=== PATIENT | male | born 1950 | race Caucasian/White ===

== ENCOUNTER 2024-07-22 09:36 | Inpatient (IN) | payer MEDICARE, OTHER ==
[~2024-07-22] VITALS: Ht 170.2 cm; Wt 50.0 kg
[2024-07-22] MEDS: IV NS 0.9% 500 ML BAG IV ONE (09:55)
[2024-07-22 09:58] LABS: BASOPHILS % (AUTO) 0.3 % (0.0-2.0); EOSINOPHILS % (AUTO) 0.1 % (0.0-6.0); HEMATOCRIT 45 % (39-51); HEMOGLOBIN 15.3 g/dL (13.5-17.5); LYMPHOCYTES # (AUTO) 0.9 K/uL (0.8-4.8); LYMPHOCYTES % (AUTO) 11.2 % (20.0-44.0); MEAN CORPUSCULAR HEMOGLOBIN 30 PG (26.0-33.0); MEAN CORPUSCULAR HGB CONC 34 g/dl (31.0-36.0); MEAN CORPUSCULAR VOLUME 88 fL (80-96); MONOCYTES # (AUTO) 1.4 K/uL (0.1-1.30); MONOCYTES % (AUTO) 16.9 % (2.0-12.0); NEUTROPHILS # (AUTO) 5.9 K/uL (1.8-8.9); NEUTROPHILS % (AUTO) 71.5 % (43.0-81.0); PLATELET COUNT (AUTO) 232 K/uL (150-450); RED BLOOD CELL COUNT(AUTO) 5.13 MIL/uL (4.5-6.0); WHITE BLOOD COUNT (AUTO) 8.3 K/uL (4.3-11.0)
[2024-07-22 10:07] LABS: CALCIUM, SERUM 8.6 mg/dL (8.5-10.1); CREATININE 0.9 mg/dL (0.6-1.3); POTASSIUM 4.1 mmol/L (3.5-5.1)
[2024-07-22 10:10] LABS: INR 1.3 (0.91-1.10); PARTIAL THROMBOPLASTIN TIME 37.7 SEC (24.3-34.3); PROTHROMBIN TIME 13.5 SECS (9.2-11.1)
[2024-07-22 10:13] LABS: ALBUMIN 2.6 g/dL (3.4-5.0); BILIRUBIN,DIRECT 0.2 mg/dL (0.0-0.2); BILIRUBIN,TOTAL 0.4 mg/dL (0.2-1.0); TOTAL PROTEIN, SERUM 7.3 g/dL (6.4-8.2)
[2024-07-22 10:18] LABS: LACTIC ACID 1.2 mmol/L (0.4-2.0)
[2024-07-22 10:44] LABS: APPEARANCE,URINE CLEAR (CLEAR); BILIRUBIN,URINE 1+ (NEGATIVE); BLOOD, URINE TRACE-INTA Ery/uL (NEGATIVE); COLOR,URINE DARK YELLOW (YELLOW); KETONES,URINE 1+ mg/dL (NEGATIVE); LEUKOCYTE ESTERASE ,URINE NEGATIVE (NEGATIVE); NITRITE, URINE NEGATIVE (NEGATIVE); PROTEIN,URINE TRACE mg/dl (NEGATIVE); UGLUCOSE NEGATIVE (NEGATIVE)
[2024-07-22 10:51] LABS: ADD URINE CULTURE NO; BACTERIA,URINE Few /HPF (None Seen); MUCUS,URINE Few /LPF (None Seen); SQUAMOUS EPITHELIAL CELL,UR 0-2 /HPF (None Seen)
[2024-07-22] MEDS ORDERED: ACET325T53 PO ×2 (11:17)
[2024-07-22] MEDS ORDERED: RIVA10TA PO (11:17)
[2024-07-22] MEDS ORDERED: VALB40CA2 PO (11:17)
[2024-07-22] MEDS ORDERED: AMIN30LI27 PO (11:17)
[2024-07-22] MEDS ORDERED: MULT-213 PO (11:17)
[2024-07-22] MEDS ORDERED: FLUO10TA PO (11:17)
[2024-07-22] MEDS ORDERED: NA P133E RC (11:17)
[2024-07-22] MEDS ORDERED: BISA10SU11 RC (11:17)
[2024-07-22] MEDS ORDERED: MAGN400O6 PO (11:17)
[2024-07-22] MEDS ORDERED: OLAN10TA3 PO (11:17)
[2024-07-22] MEDS ORDERED: DIVA250T4 PO (11:17)
[2024-07-22] MEDS ORDERED: PSYL660P17 PO (11:17)
[2024-07-22] MEDS ORDERED: MAGNESIUM HYDROXIDE 30 ML UDC PO PRN (12:00)
[2024-07-22] MEDS ORDERED: ACETAMINOPHEN 325 MG TABLET PO PRN (12:00)
[2024-07-22] MEDS: ENOXAPARIN SODIUM 40 MG/0.4 ML DISP.SYRIN SQ SCH (12:00)
[2024-07-22] MEDS ORDERED: MAG HYDROX/AL HYDROX/SIMETH 30 ML UDC PO PRN (12:00)
[2024-07-22] MEDS ORDERED: NA PHOS,M-B/NA PHOS,DI-BA 1 EA ENEMA RC PRN (12:00)
[2024-07-22] MEDS ORDERED: ONDANSETRON HCL/PF 4 MG/2 ML VIAL IVP PRN (12:00)
[2024-07-22] MEDS ORDERED: BISACODYL SUPP (10 MG) 10 MG/SUPP.RECT SUPP.RECT RC PRN (12:00)
[2024-07-22 12:40] VITALS: BP 124/70; TEMP 97.7; O2SAT 97
[2024-07-22] MEDS: DIVALPROEX SODIUM 250 MG TABLET.DR PO SCH (13:00)
[2024-07-22] MEDS: CEFTRIAXONE 1 G in IV D5W 50 ML IV SCH (13:19)
[2024-07-22] MEDS: AZITHROMYCIN 500 MG in IV D5W 250 ML IV SCH (14:10)
[2024-07-22] MEDS: PROSOURCE / PROSTAT (PYXIS) 30 ML UDC PO SCH (17:00)
[2024-07-22] MEDS: IV D5/0.45 NACL 1,000 ML IV SCH (18:46)
[2024-07-22 20:00] VITALS: BP_SYST 129; BP_DIAS 102; BP_DIAS 72; TEMP 97.9; O2SAT 95
[2024-07-22] MEDS: OLANZAPINE 10 MG TABLET PO SCH (21:00)
[2024-07-22] MEDS: PSYLLIUM SEED 1 PKT PACKET PO SCH (21:00)
[2024-07-23 06:49] LABS: BASOPHILS % (AUTO) 0.2 % (0.0-2.0); EOSINOPHILS % (AUTO) 0.1 % (0.0-6.0); HEMATOCRIT 43 % (39-51); HEMOGLOBIN 14.4 g/dL (13.5-17.5); LYMPHOCYTES # (AUTO) 0.6 K/uL (0.8-4.8); LYMPHOCYTES % (AUTO) 6.8 % (20.0-44.0); MEAN CORPUSCULAR HEMOGLOBIN 30 PG (26.0-33.0); MEAN CORPUSCULAR HGB CONC 34 g/dl (31.0-36.0); MEAN CORPUSCULAR VOLUME 88 fL (80-96); MONOCYTES # (AUTO) 1.5 K/uL (0.1-1.30); MONOCYTES % (AUTO) 17.1 % (2.0-12.0); NEUTROPHILS # (AUTO) 6.9 K/uL (1.8-8.9); NEUTROPHILS % (AUTO) 75.8 % (43.0-81.0); PLATELET COUNT (AUTO) 215 K/uL (150-450); RED BLOOD CELL COUNT(AUTO) 4.83 MIL/uL (4.5-6.0); RED CELL DISTRIBUTION WIDTH 15.2 % (11.5-15.0); WHITE BLOOD COUNT (AUTO) 9.1 K/uL (4.3-11.0)
[2024-07-23 08:00] VITALS: BP 128/69; TEMP 97.5; O2SAT 94
[2024-07-23] MEDS: MULTIVIT W/MINERALS 1 TAB TABLET PO SCH (08:25)
[2024-07-23] MEDS: Fluoxetine 10 mg capsule PO SCH (08:25)
[2024-07-23] MEDS: PANTOPRAZOLE 40 MG VIAL IV SCH (08:28)
[2024-07-23 08:32] LABS: CALCIUM, SERUM 8.6 mg/dL (8.5-10.1); CREATININE 0.6 mg/dL (0.6-1.3); MAGNESIUM 1.9 mg/dL (1.8-2.4); PHOSPHORUS 3.1 mg/dL (2.5-4.9); POTASSIUM 3.9 mmol/L (3.5-5.1)
[2024-07-23] MEDS ORDERED: Medication Not On Formulary EA (Valbenazine Tosylate (Ingrezza) 40 MG) PO SCH (09:00)
[2024-07-23 11:19] LABS: LYMPHOCYTES % (MANUAL) 13 % (16-48); MONOCYTES % (MANUAL) 7 % (0-11.0); NEUTROPHILS % (MANUAL) 80 (42-76); PLATELET ESTIMATE ADEQUATE
[2024-07-23 16:00] VITALS: BP 142/91; TEMP 97.7; O2SAT 94
[2024-07-23 22:56] VITALS: BP 147/64; TEMP 97.8; O2SAT 96
[2024-07-24 07:00] VITALS: BP 122/65; TEMP 97.5; O2SAT 94
[2024-07-24 07:42] LABS: BASOPHILS % (AUTO) 0.2 % (0.0-2.0); EOSINOPHILS % (AUTO) 0.2 % (0.0-6.0); HEMATOCRIT 42 % (39-51); HEMOGLOBIN 14.4 g/dL (13.5-17.5); LYMPHOCYTES # (AUTO) 1.1 K/uL (0.8-4.8); LYMPHOCYTES % (AUTO) 8.7 % (20.0-44.0); MEAN CORPUSCULAR HEMOGLOBIN 30 PG (26.0-33.0); MEAN CORPUSCULAR HGB CONC 34 g/dl (31.0-36.0); MEAN CORPUSCULAR VOLUME 88 fL (80-96); MONOCYTES # (AUTO) 1.5 K/uL (0.1-1.30); MONOCYTES % (AUTO) 11.1 % (2.0-12.0); NEUTROPHILS # (AUTO) 10.6 K/uL (1.8-8.9); NEUTROPHILS % (AUTO) 79.8 % (43.0-81.0); PLATELET COUNT (AUTO) 228 K/uL (150-450); RED BLOOD CELL COUNT(AUTO) 4.76 MIL/uL (4.5-6.0); RED CELL DISTRIBUTION WIDTH 15.4 % (11.5-15.0); WHITE BLOOD COUNT (AUTO) 13.3 K/uL (4.3-11.0)
[2024-07-24 08:14] LABS: CALCIUM, SERUM 8.6 mg/dL (8.5-10.1); CREATININE 0.5 mg/dL (0.6-1.3); MAGNESIUM 1.9 mg/dL (1.8-2.4); PHOSPHORUS 2.6 mg/dL (2.5-4.9); POTASSIUM 3.3 mmol/L (3.5-5.1)
[2024-07-24] MEDS ORDERED: Z GUARD REMEDY 4 OZ OINT TP PRN (08:30)
[2024-07-24] MEDS: Z GUARD REMEDY 4 OZ OINT TP SCH (10:22)
[2024-07-24 16:00] VITALS: BP 117/66; TEMP 97.7; O2SAT 98
[2024-07-24 20:00] VITALS: BP 120/74; TEMP 97.3; O2SAT 97
[2024-07-25 07:00] VITALS: BP 125/76; TEMP 97.5; O2SAT 98
[2024-07-25] MEDS: PANTOPRAZOLE 40 MG TABLET.DR PO SCH (08:44)
[2024-07-25] MEDS: DAKINS QUARTER STRENGTH (0.125%) 480 ML BOTTLE TOP SCH (09:46)
[2024-07-25 14:32] LABS: BASOPHILS % (AUTO) 0.3 % (0.0-2.0); EOSINOPHILS # (AUTO) 0.1 K/uL (0.0-0.7); EOSINOPHILS % (AUTO) 0.8 % (0.0-6.0); HEMATOCRIT 43 % (39-51); HEMOGLOBIN 14.3 g/dL (13.5-17.5); LYMPHOCYTES # (AUTO) 1.8 K/uL (0.8-4.8); LYMPHOCYTES % (AUTO) 18.3 % (20.0-44.0); MEAN CORPUSCULAR HEMOGLOBIN 29 PG (26.0-33.0); MEAN CORPUSCULAR HGB CONC 33 g/dl (31.0-36.0); MEAN CORPUSCULAR VOLUME 87 fL (80-96); MONOCYTES # (AUTO) 1.1 K/uL (0.1-1.30); MONOCYTES % (AUTO) 11.1 % (2.0-12.0); NEUTROPHILS # (AUTO) 6.8 K/uL (1.8-8.9); NEUTROPHILS % (AUTO) 69.5 % (43.0-81.0); PLATELET COUNT (AUTO) 237 K/uL (150-450); RED BLOOD CELL COUNT(AUTO) 4.88 MIL/uL (4.5-6.0); RED CELL DISTRIBUTION WIDTH 15.4 % (11.5-15.0); WHITE BLOOD COUNT (AUTO) 9.8 K/uL (4.3-11.0)
[2024-07-25 14:43] LABS: CREATININE 0.7 mg/dL (0.6-1.3); POTASSIUM 3.3 mmol/L (3.5-5.1)
[2024-07-25 16:00] VITALS: BP 116/75; TEMP 97.9; O2SAT 97
[2024-07-25] MEDS: POTASSIUM CHLORIDE 20 MEQ POWDER PACKET NG SCH (16:52)
[2024-07-25 20:00] VITALS: BP_SYST 95; BP_SYST 96; BP_DIAS 45; BP_DIAS 53; TEMP 98.1; O2SAT 96; O2SAT 97
[2024-07-26 06:52] LABS: BASOPHILS % (AUTO) 0.3 % (0.0-2.0); EOSINOPHILS # (AUTO) 0.1 K/uL (0.0-0.7); EOSINOPHILS % (AUTO) 0.8 % (0.0-6.0); HEMATOCRIT 40 % (39-51); HEMOGLOBIN 13.4 g/dL (13.5-17.5); LYMPHOCYTES # (AUTO) 1.6 K/uL (0.8-4.8); LYMPHOCYTES % (AUTO) 18.2 % (20.0-44.0); MEAN CORPUSCULAR HEMOGLOBIN 29 PG (26.0-33.0); MEAN CORPUSCULAR HGB CONC 33 g/dl (31.0-36.0); MEAN CORPUSCULAR VOLUME 88 fL (80-96); MONOCYTES # (AUTO) 1.1 K/uL (0.1-1.30); MONOCYTES % (AUTO) 12.1 % (2.0-12.0); NEUTROPHILS % (AUTO) 68.6 % (43.0-81.0); PLATELET COUNT (AUTO) 231 K/uL (150-450); RED CELL DISTRIBUTION WIDTH 15.2 % (11.5-15.0); WHITE BLOOD COUNT (AUTO) 8.8 K/uL (4.3-11.0)
[2024-07-26 07:09] LABS: CALCIUM, SERUM 8.5 mg/dL (8.5-10.1); CREATININE 0.6 mg/dL (0.6-1.3); MAGNESIUM 1.9 mg/dL (1.8-2.4); POTASSIUM 3.1 mmol/L (3.5-5.1)
[2024-07-26 07:57] VITALS: BP 107/49; TEMP 97.5; O2SAT 95
[2024-07-26 08:00] VITALS: BP 107/44; TEMP 97.5; O2SAT 95
[2024-07-26] MEDS: POTASSIUM CHLORIDE 20 MEQ POWDER PACKET NG SCH (11:03)
[2024-07-26] MEDS ORDERED: AMOX-427 PO (13:16)
[2024-07-26 14:50] VITALS: BP 109/58
== END 2024-07-26 16:51 | DRG 177 ==
LOC: ER 09:51 → MED 12:00
PROVIDERS: ATTEND Nurse Practitioner Acute Care
DX: J15.69 Pneumonia due to other Gram-negative bacteria (principal); G93.41 Metabolic encephalopathy; N17.0 Acute kidney failure with tubular necrosis; N39.0 Urinary tract infection, site not specified; E44.0 Moderate protein-calorie malnutrition; R64 Cachexia; Z68.1 Body mass index [BMI] 19.9 or less, adult; F01.53 Vascular dementia, unspecified severity, with mood disturbance; F17.210 Nicotine dependence, cigarettes, uncomplicated; E88.09 Other disorders of plasma-protein metabolism, not elsewhere classified; G20.A1 Parkinson's disease without dyskinesia, without mention of fluctuations; I48.0 Paroxysmal atrial fibrillation; I73.9 Peripheral vascular disease, unspecified; R53.1 Weakness; F32.9 Major depressive disorder, single episode, unspecified; B96.89 Other specified bacterial agents as the cause of diseases classified elsewhere; C44.329 Squamous cell carcinoma of skin of other parts of face; C44.42 Squamous cell carcinoma of skin of scalp and neck; J69.0 Pneumonitis due to inhalation of food and vomit; J15.9 Unspecified bacterial pneumonia
CPT/HCPCS: 36415; 70450-TC; 71045-TC; 74230-TC; 80048-TC; 80076-TC; 81001; 83605-TC; 83735-TC; 84100-TC; 85025-TC; 85730-TC; 87040-TC; 87086-TC; 92526; 92611-TC; 97110-TC; 97112-TC; 97116-TC; 97530-TC; A4223; G0378; J0456; J0696; J1650; J2470; J3490; J7030; J7040; J7050; J7060

== ENCOUNTER 2024-12-25 12:32 | Inpatient (IN) | payer MEDICARE, OTHER ==
[~2024-12-25] VITALS: Ht 167.6 cm; Wt 58.5 kg
[~2024-12-25 12:32] MED LIST: ACET325T53 PO; AMIN30LI27 PO; AMOX-427 PO; BISA10SU11 RC; DIVA250T4 PO; FLUO10TA PO; MAGN400O6 PO; MULT-213 PO; NA P133E RC; OLAN10TA3 PO; PSYL660P17 PO; RIVA10TA PO; VALB40CA2 PO
[2024-12-25] MEDS: IV NS 0.9% 1,000 ML BAG IV ONE (12:50)
[2024-12-25 13:01] LABS: CALCIUM, SERUM 8.7 mg/dL (8.5-10.1); CREATININE 0.9 mg/dL (0.6-1.3); SODIUM SERUM 140.0 mmol/L (136-145); UREA NITROGEN, BLOOD 20.0 mg/dL (7-18)
[2024-12-25] MEDS ORDERED: ACETAMINOPHEN 650 MG/SUPP.RECT RC ONE (13:01)
[2024-12-25] MEDS ORDERED: PIPERACI/TAZO 3.375GM/D5W 50ML PB IV ONE (13:04)
[2024-12-25 13:05] LABS: PLATELET COUNT (AUTO) 203 K/uL (150-450); RED BLOOD CELL COUNT(AUTO) 4.54 MIL/uL (4.5-6.0); RED CELL DISTRIBUTION WIDTH 14.6 % (11.5-15.0); WHITE BLOOD COUNT (AUTO) 18.6 K/uL (4.3-11.0)
[2024-12-25] MEDS: ACETAMINOPHEN 650 MG/SUPP.RECT RC ONE (13:05)
[2024-12-25 13:07] LABS: ASPARTATE AMINOTRANSFERASE 17.0 U/L (15-37); TOTAL PROTEIN, SERUM 7.4 g/dL (6.4-8.2)
[2024-12-25 13:10] LABS: LACTIC ACID 1.4 mmol/L (0.4-2.0)
[2024-12-25] MEDS: PIPERACILLIN /TAZOBACTAM 3.375 G in IV D5W 50 ML IV ONE (13:10)
[2024-12-25 13:14] LABS: INR 1.47 (0.91-1.10)
[2024-12-25] MEDS ORDERED: VANCOMYCIN 1 GM /D5W 250 ML PB IV ONE (13:47)
[2024-12-25] MEDS: VANCOMYCIN 1 GM in IV D5W 250 ML IV ONE (13:50)
[2024-12-25 14:42] LABS: APPEARANCE,URINE TURBID (CLEAR); BLOOD, URINE 3+ Ery/uL (NEGATIVE); LEUKOCYTE ESTERASE ,URINE 3+ (NEGATIVE); NITRITE, URINE POSITIVE (NEGATIVE); UGLUCOSE NEGATIVE (NEGATIVE)
[2024-12-25 14:53] LABS: ADD URINE CULTURE YES; SQUAMOUS EPITHELIAL CELL,UR 0-2 /HPF (None Seen)
[2024-12-25] MEDS ORDERED: AMIN30LI27 PO (14:58)
[2024-12-25] MEDS ORDERED: DIVA-76 PO (14:58)
[2024-12-25] MEDS ORDERED: MAGN400O6 PO (14:58)
[2024-12-25] MEDS ORDERED: CRAN400T3 PO (14:58)
[2024-12-25 15:06] LABS: LYMPHOCYTES % (MANUAL) 5 % (16-48); MONOCYTES % (MANUAL) 15 % (0-11.0); NEUTROPHILS % (MANUAL) 80 (42-76); PLATELET ESTIMATE ADEQUATE
[2024-12-25] MEDS: IV LR 500 ML IV SCH (16:30)
[2024-12-25] MEDS ORDERED: Z GUARD REMEDY 4 OZ OINT TP PRN (16:30)
[2024-12-25] MEDS ORDERED: ONDANSETRON HCL/PF 4 MG/2 ML VIAL IVP PRN (16:30)
[2024-12-25] MEDS: CEFTRIAXONE 1 G in IV D5W 50 ML IV SCH (17:58)
[2024-12-25] MEDS: OLANZAPINE 10 MG TABLET PO SCH (17:59)
[2024-12-25] MEDS: DIVALPROEX SODIUM 250 MG TABLET.DR PO SCH (17:59)
[2024-12-25] MEDS ORDERED: DOSING PER PHARMACY-VANCOMYCIN IV XX PRN (18:00)
[2024-12-25 20:00] VITALS: BP 100/53; TEMP 98.2; O2SAT 98
[2024-12-25] MEDS: VANCOMYCIN 500 MG in IV D5W 100ml IV SCH (21:45)
[2024-12-26] VITALS: BP 96/50; TEMP 99; O2SAT 94
[2024-12-26 04:00] VITALS: BP 114/59; TEMP 99; O2SAT 96
[2024-12-26 07:00] LABS: PLATELET COUNT (AUTO) 188 K/uL (150-450); RED BLOOD CELL COUNT(AUTO) 4.03 MIL/uL (4.5-6.0); RED CELL DISTRIBUTION WIDTH 14.4 % (11.5-15.0); WHITE BLOOD COUNT (AUTO) 12.3 K/uL (4.3-11.0)
[2024-12-26 07:30] LABS: CALCIUM, SERUM 8.3 mg/dL (8.5-10.1); CREATININE 0.8 mg/dL (0.6-1.3); PHOSPHORUS 2.5 mg/dL (2.5-4.9); SODIUM SERUM 140.0 mmol/L (136-145); UREA NITROGEN, BLOOD 14.0 mg/dL (7-18)
[2024-12-26 08:00] VITALS: BP 117/65; TEMP 98.1; O2SAT 96
[2024-12-26] MEDS: PANTOPRAZOLE 40 MG TABLET.DR PO SCH (08:26)
[2024-12-26] MEDS: RIVAROXABAN 10 MG TABLET PO SCH (08:28)
[2024-12-26 08:57] LABS: LDL 60.0 mg/dL (0-99)
[2024-12-26] MEDS: POTASSIUM CL. PREMIX PERIPHER. 50 ML IV SCH (11:04)
[2024-12-26 11:18] LABS: IRON, SERUM 11 ug/dl (50-175)
[2024-12-26 11:37] LABS: FIBRINOGEN ACTIVITY 536.0 Mg/dL (213-485); INR 1.18 (0.91-1.10)
[2024-12-26 16:00] VITALS: BP 121/54; TEMP 97; O2SAT 97
[2024-12-26 20:37] VITALS: BP 100/58; TEMP 99; O2SAT 96
[2024-12-27] MEDS: IV LR 1000 ML 1,000 ML IV PRN ×2 (02:54→03:13)
[2024-12-27 04:00] VITALS: BP 114/53; TEMP 96.8; O2SAT 98
[2024-12-27 06:56] LABS: FIBRINOGEN ACTIVITY 560.0 Mg/dL (213-485); INR 1.13 (0.91-1.10)
[2024-12-27 07:30] LABS: CALCIUM, SERUM 8.5 mg/dL (8.5-10.1); CREATININE 0.7 mg/dL (0.6-1.3); PHOSPHORUS 3.2 mg/dL (2.5-4.9); SODIUM SERUM 142.0 mmol/L (136-145); UREA NITROGEN, BLOOD 13.0 mg/dL (7-18)
[2024-12-27 08:00] VITALS: BP 114/64; TEMP 97.5; O2SAT 99
[2024-12-27 09:16] LABS: PLATELET COUNT (AUTO) 195 K/uL (150-450); RED BLOOD CELL COUNT(AUTO) 3.81 MIL/uL (4.5-6.0); RED CELL DISTRIBUTION WIDTH 14.6 % (11.5-15.0); WHITE BLOOD COUNT (AUTO) 10.2 K/uL (4.3-11.0)
[2024-12-27] MEDS: MEROPENEM 1 G in IV NS 0.9% 100 ML IV SCH (14:50)
[2024-12-27 16:00] VITALS: BP 109/65; TEMP 98.2; O2SAT 98
[2024-12-27 20:00] VITALS: BP 122/63; TEMP 98.1; O2SAT 97
[2024-12-28 04:00] VITALS: BP 120/62; TEMP 98.1; O2SAT 98
[2024-12-28 07:12] LABS: PLATELET COUNT (AUTO) 210 K/uL (150-450); RED BLOOD CELL COUNT(AUTO) 3.87 MIL/uL (4.5-6.0); RED CELL DISTRIBUTION WIDTH 14.3 % (11.5-15.0); WHITE BLOOD COUNT (AUTO) 7.8 K/uL (4.3-11.0)
[2024-12-28 08:00] VITALS: BP 116/64; TEMP 97.9; O2SAT 97
[2024-12-28] MEDS: ACETAMINOPHEN 325 MG TABLET PO PRN (09:46)
[2024-12-28 16:00] VITALS: BP 115/58; TEMP 98.1; O2SAT 96
[2024-12-28 20:00] VITALS: BP 123/65; TEMP 98.1; O2SAT 98
[2024-12-29 04:00] VITALS: BP 129/51; TEMP 97.9; O2SAT 100
[2024-12-29 08:00] VITALS: BP 110/64; TEMP 98.2; O2SAT 95
[2024-12-29] MEDS ORDERED: MERO1VIA23 IV (10:59)
[2024-12-29] MEDS ORDERED: IOHEXOL-300 100 ML VIAL IV ONE (13:58)
[2024-12-29] MEDS ORDERED: IV NS 0.9% 250 ML IV ONE (13:59)
[2024-12-29 16:00] VITALS: BP 117/67; TEMP 97.4; O2SAT 97
== END 2024-12-29 16:29 | DRG 871 ==
LOC: ER 12:33 → TELE1 13:46 → MEDSG1 12-26 09:43
PROVIDERS: ADMIT Nurse Practitioner Acute Care; ATTEND Nurse Practitioner Acute Care
DX: A41.9 Sepsis, unspecified organism (principal); G93.41 Metabolic encephalopathy; N39.0 Urinary tract infection, site not specified; Z16.24 Resistance to multiple antibiotics; Z16.12 Extended spectrum beta lactamase (ESBL) resistance; I48.0 Paroxysmal atrial fibrillation; I73.9 Peripheral vascular disease, unspecified; F31.9 Bipolar disorder, unspecified; G20.A1 Parkinson's disease without dyskinesia, without mention of fluctuations; F02.80 Dementia in other diseases classified elsewhere, unspecified severity, without behavioral disturbance, psychotic disturbance, mood disturbance, and anxiety; B96.20 Unspecified Escherichia coli [E. coli] as the cause of diseases classified elsewhere; D64.9 Anemia, unspecified; E88.09 Other disorders of plasma-protein metabolism, not elsewhere classified; C44.82 Squamous cell carcinoma of overlapping sites of skin; D04.39 Carcinoma in situ of skin of other parts of face; L89.151 Pressure ulcer of sacral region, stage 1; L89.621 Pressure ulcer of left heel, stage 1; L89.611 Pressure ulcer of right heel, stage 1; C44.42 Squamous cell carcinoma of skin of scalp and neck
CPT/HCPCS: 36415; 70470-TC; 71045-TC; 80048-TC; 80061-TC; 80076-TC; 80202-TC; 81001; 82607-TC; 82728-TC; 83540-TC; 83605-TC; 83735-TC; 84100-TC; 85025-TC; 85027-TC; 85396; 85730-TC; 87040-TC; 87081-TC; 87086-TC; 87186-TC; A4223; A6253; A6403; G0378; J0696; J2185; J2543; J3373; J3480; J7030; J7050; J7060; J7120; Q9967

== ENCOUNTER 2025-04-16 11:22 | Inpatient (IN) | payer MEDICARE, OTHER ==
[~2025-04-16] VITALS: Ht 172.7 cm; Wt 58.1 kg
[~2025-04-16 11:22] MED LIST changes: -AMOX-427 PO; +CRAN400T3 PO; +DIVA-76 PO; -DIVA250T4 PO; +MERO1VIA23 IV
[2025-04-16] MEDS: IV NS 0.9% 500 ML BAG IV ONE (11:30)
[2025-04-16 12:23] LABS: PLATELET COUNT (AUTO) 242 K/uL (150-450); RED BLOOD CELL COUNT(AUTO) 4.13 MIL/uL (4.5-6.0); RED CELL DISTRIBUTION WIDTH 15.6 % (11.5-15.0); WHITE BLOOD COUNT (AUTO) 10.3 K/uL (4.3-11.0)
[2025-04-16 12:29] LABS: APPEARANCE,URINE CLEAR (CLEAR); BLOOD, URINE Trace-lysed Ery/uL (NEGATIVE); LEUKOCYTE ESTERASE ,URINE Large (NEGATIVE); UGLUCOSE Negative (NEGATIVE)
[2025-04-16 12:30] LABS: CALCIUM, SERUM 7.5 mg/dL (8.5-10.1); CREATININE 0.6 mg/dL (0.6-1.3); SODIUM SERUM 128 mmol/L (136-145); UREA NITROGEN, BLOOD 10 mg/dL (7-18)
[2025-04-16 12:34] LABS: NITRITE, URINE POSITIVE (NEGATIVE)
[2025-04-16 12:35] LABS: INR 1.12 (0.91-1.10)
[2025-04-16 12:35] LABS: ADD URINE CULTURE YES; SQUAMOUS EPITHELIAL CELL,UR None Seen /HPF (None Seen)
[2025-04-16 12:47] LABS: LACTIC ACID 2.1 mmol/L (0.4-2.0)
[2025-04-16 12:48] LABS: SERUM AMMONIA 25 umol/L (11-32)
[2025-04-16 12:50] LABS: ALCOHOL, BLOOD < 3 mg/dL (0-10); ASPARTATE AMINOTRANSFERASE 11 U/L (15-37); TOTAL PROTEIN, SERUM 6.1 g/dL (6.4-8.2)
[2025-04-16 12:51] LABS: AMPHETAMINE, URINE NEGATIVE (NEGATIVE); BARBITURATE, URINE NEGATIVE (NEGATIVE); BENZODIAZEPINE, URINE NEGATIVE (NEGATIVE); CANNABINOID, URINE NEGATIVE (NEGATIVE); COCCAINE, URINE NEGATIVE (NEGATIVE); OPIATE, URINE NEGATIVE (NEGATIVE)
[2025-04-16] MEDS ORDERED: CEFTRIAXONE 1GM BAG (ER ONLY) 50 ML IV ONE (13:58)
[2025-04-16] MEDS: CEFTRIAXONE 1 G in IV D5W 50 ML IV ONE (14:10)
[2025-04-16] MEDS: IV NS 0.9% 1,000 ML BAG IV ONE (14:10)
[2025-04-16] MEDS ORDERED: Z GUARD REMEDY 4 OZ OINT TP PRN (14:30)
[2025-04-16] MEDS ORDERED: MAGNESIUM HYDROXIDE 30 ML UDC PO PRN (14:30)
[2025-04-16] MEDS ORDERED: HYDROCODONE/APAP 5/325MG TABLET PO PRN (14:30)
[2025-04-16] MEDS ORDERED: ZOLPIDEM TARTRATE 5 MG TABLET PO PRN (14:30)
[2025-04-16] MEDS ORDERED: ONDANSETRON HCL/PF 4 MG/2 ML VIAL IVP PRN (14:30)
[2025-04-16] MEDS ORDERED: MAG HYDROX/AL HYDROX/SIMETH 30 ML UDC PO PRN (14:30)
[2025-04-16] MEDS: ENOXAPARIN SODIUM 40 MG/0.4 ML DISP.SYRIN SQ SCH (15:00)
[2025-04-16 16:00] VITALS: BP 123/79; TEMP 98.1; O2SAT 96
[2025-04-16 20:00] VITALS: BP 110/72; TEMP 98.2; O2SAT 96
[2025-04-16] MEDS: IV NS 0.9% 1,000 ML IV PRN (23:37)
[2025-04-17] MEDS: ACETAMINOPHEN 325 MG TABLET PO PRN (00:26)
[2025-04-17 06:15] LABS: PLATELET COUNT (AUTO) 267 K/uL (150-450); RED BLOOD CELL COUNT(AUTO) 4.33 MIL/uL (4.5-6.0); RED CELL DISTRIBUTION WIDTH 15.5 % (11.5-15.0); WHITE BLOOD COUNT (AUTO) 7.1 K/uL (4.3-11.0)
[2025-04-17 06:27] LABS: CALCIUM, SERUM 8.5 mg/dL (8.5-10.1); CREATININE 0.7 mg/dL (0.6-1.3); PHOSPHORUS 3.0 mg/dL (2.5-4.9); SODIUM SERUM 136.0 mmol/L (136-145); UREA NITROGEN, BLOOD 14.0 mg/dL (7-18)
[2025-04-17] MEDS: PANTOPRAZOLE 40 MG TABLET.DR PO SCH (07:53)
[2025-04-17] MEDS: CEFTRIAXONE 1 G in IV D5W 50 ML IV SCH (15:57)
[2025-04-17 16:00] VITALS: BP 95/55; TEMP 97.7; O2SAT 96
[2025-04-17 19:45] VITALS: BP_SYST 106; BP_SYST 98; BP_DIAS 56; BP_DIAS 58; TEMP 97.8; TEMP 98.4; O2SAT 93; O2SAT 97
[2025-04-17 20:00] VITALS: BP 106/58; TEMP 98.2; O2SAT 97
[2025-04-18] VITALS: BP 102/55; TEMP 98.2; O2SAT 97
[2025-04-18 04:00] VITALS: BP 102/50; TEMP 97.4; O2SAT 96
[2025-04-18 07:20] LABS: PLATELET COUNT (AUTO) 258 K/uL (150-450); RED BLOOD CELL COUNT(AUTO) 3.98 MIL/uL (4.5-6.0); RED CELL DISTRIBUTION WIDTH 16.0 % (11.5-15.0); WHITE BLOOD COUNT (AUTO) 10.9 K/uL (4.3-11.0)
[2025-04-18 07:42] LABS: CALCIUM, SERUM 8.3 mg/dL (8.5-10.1); CREATININE 0.7 mg/dL (0.6-1.3); PHOSPHORUS 2.0 mg/dL (2.5-4.9); SODIUM SERUM 137.0 mmol/L (136-145); UREA NITROGEN, BLOOD 18.0 mg/dL (7-18)
[2025-04-18 08:00] VITALS: BP 115/72; TEMP 97.9; O2SAT 97
[2025-04-18 08:16] LABS: FIBRINOGEN ACTIVITY 384.0 Mg/dL (213-485); INR 1.02 (0.91-1.10)
[2025-04-18 12:00] VITALS: BP 115/72; TEMP 97.9; O2SAT 97
[2025-04-18] MEDS: MEROPENEM 1 G in IV NS 0.9% 100 ML IV SCH (14:34)
[2025-04-18] MEDS: K PHOS NEUTRAL 250 MG TABLET PO ONE (15:35)
[2025-04-18 16:00] VITALS: BP 110/79; TEMP 98.1; O2SAT 99
[2025-04-18 20:00] VITALS: BP_SYST 103; BP_SYST 105; BP_SYST 175; BP_DIAS 54; BP_DIAS 61; BP_DIAS 97; TEMP 97.9; TEMP 98.1; O2SAT 95; O2SAT 96; O2SAT 98
[2025-04-19] VITALS: BP_SYST 104; BP_SYST 109; BP_SYST 187; BP_DIAS 60; BP_DIAS 98; TEMP 97.7; TEMP 97.9; TEMP 98.1; O2SAT 96; O2SAT 98
[2025-04-19 04:00] VITALS: BP 109/63; TEMP 97.7; TEMP 97.8; O2SAT 96
[2025-04-19 05:08] LABS: FOLIC ACID 3.7 ng/mL (>3.0); IMMUNOGLOBULIN A, SERUM 394 mg/dL (61-437); IMMUNOGLOBULIN M, SERUM 132 mg/dL (15-143)
[2025-04-19 06:07] LABS: CARCINOEMBRYONIC ANTIGEN (CEA) 6.1 ng/mL (0.0-4.7)
[2025-04-19 06:42] LABS: PLATELET COUNT (AUTO) 249 K/uL (150-450); RED BLOOD CELL COUNT(AUTO) 4.12 MIL/uL (4.5-6.0); RED CELL DISTRIBUTION WIDTH 16.2 % (11.5-15.0); WHITE BLOOD COUNT (AUTO) 9.2 K/uL (4.3-11.0)
[2025-04-19 07:00] VITALS: BP 100/55; TEMP 97.5; O2SAT 99
[2025-04-19 07:10] LABS: FREE KAPPA LT CHAINS SERUM 44.9 mg/L (3.3-19.4); FREE LAMBDA LT CHAIN SERUM 32.3 mg/L (5.7-26.3); KAPPA/LAMBDA RATIO SERUM 1.39 (0.26-1.65)
[2025-04-19 08:00] VITALS: BP 100/55; TEMP 97.5; O2SAT 96
[2025-04-19 11:00] VITALS: BP 114/74; TEMP 97.3; O2SAT 98
[2025-04-22 06:07] LABS: *SPE A/G RATIO 0.7 (0.7-1.7); *SPE ALBUMIN 2.3 g/dL (2.9-4.4); *SPE ALPHA-1-GLOBULIN 0.3 g/dL (0.0-0.4); *SPE ALPHA-2-GLOBULIN 0.8 g/dL (0.4-1.0); *SPE BETA GLOBULIN 1.0 g/dL (0.7-1.3); *SPE GLOBULIN, TOTAL 3.4 g/dL (2.2-3.9); *SPE M-SPIKE Not Observed g/dL (Not Observed); *SPE PROTEIN TOTAL 5.7 g/dL (6.0-8.5); *SPEGAMMA GLOBULIN 1.3 g/dL (0.4-1.8)
== END 2025-04-19 15:15 | DRG 690 ==
LOC: ER 11:29 → TELE 13:54
DX: N39.0 Urinary tract infection, site not specified (principal); G90.89 Other disorders of autonomic nervous system; E87.1 Hypo-osmolality and hyponatremia; G20.A1 Parkinson's disease without dyskinesia, without mention of fluctuations; B96.20 Unspecified Escherichia coli [E. coli] as the cause of diseases classified elsewhere; I48.0 Paroxysmal atrial fibrillation; C44.42 Squamous cell carcinoma of skin of scalp and neck; D64.9 Anemia, unspecified; Z79.01 Long term (current) use of anticoagulants; F02.83 Dementia in other diseases classified elsewhere, unspecified severity, with mood disturbance; I73.9 Peripheral vascular disease, unspecified; F31.9 Bipolar disorder, unspecified; Z16.12 Extended spectrum beta lactamase (ESBL) resistance; E86.0 Dehydration; E07.9 Disorder of thyroid, unspecified; E78.5 Hyperlipidemia, unspecified; E86.1 Hypovolemia; E87.6 Hypokalemia; Z79.899 Other long term (current) drug therapy; D72.821 Monocytosis (symptomatic); Z91.81 History of falling; Z79.60 Long term (current) use of unspecified immunomodulators and immunosuppressants
CPT/HCPCS: 36415; 70450-TC; 71045-TC; 80048-TC; 80076-TC; 81001; 82140-TC; 82378; 82607-TC; 82728-TC; 82784; 82962-TC; 83540-TC; 83605-TC; 83735-TC; 84100-TC; 84155; 84165; 84439-TC; 84443-TC; 84484-TC; 85025-TC; 85396; 85730-TC; 86334; 87040-TC; 87081-TC; 87086-TC; 87186-TC; 93307-TC; 97110-TC; 97112-TC; 97530-TC; A4223; G0378; G0480; J0696; J1650; J2185; J7030; J7060

== ENCOUNTER 2025-05-13 20:59 | Inpatient (IN) | payer MEDICARE, OTHER ==
[~2025-05-13] VITALS: Ht 170.2 cm; Wt 55.8 kg
[~2025-05-13 20:59] MED LIST changes: -MERO1VIA23 IV
[2025-05-13 22:27] LABS: CALCIUM, SERUM 7.8 mg/dL (8.5-10.1); CREATININE 0.6 mg/dL (0.6-1.3); PLATELET COUNT (AUTO) 311 K/uL (150-450); RED BLOOD CELL COUNT(AUTO) 3.90 MIL/uL (4.5-6.0); RED CELL DISTRIBUTION WIDTH 15.0 % (11.5-15.0); SODIUM SERUM 134.0 mmol/L (136-145); UREA NITROGEN, BLOOD 12.0 mg/dL (7-18); WHITE BLOOD COUNT (AUTO) 7.7 K/uL (4.3-11.0)
[2025-05-13 22:33] LABS: ASPARTATE AMINOTRANSFERASE 10.0 U/L (15-37); TOTAL PROTEIN, SERUM 6.1 g/dL (6.4-8.2)
[2025-05-13 22:36] LABS: LACTIC ACID 1.3 mmol/L (0.4-2.0)
[2025-05-13 22:39] LABS: INR 1.09 (0.91-1.10)
[2025-05-13] MEDS ORDERED: IOHEXOL-300 100 ML VIAL IV ONE ×2 (22:39→22:57)
[2025-05-14] MEDS ORDERED: HYDROCODONE/APAP 5/325MG TABLET PO PRN
[2025-05-14] MEDS ORDERED: ACETAMINOPHEN 325 MG TABLET PO PRN
[2025-05-14] MEDS ORDERED: MAGNESIUM HYDROXIDE 30 ML UDC PO PRN
[2025-05-14] MEDS ORDERED: ONDANSETRON HCL/PF 4 MG/2 ML VIAL IVP PRN
[2025-05-14] MEDS ORDERED: MAG HYDROX/AL HYDROX/SIMETH 30 ML UDC PO PRN
[2025-05-14] MEDS ORDERED: Z GUARD REMEDY 4 OZ OINT TP PRN
[2025-05-14] MEDS ORDERED: ZOLPIDEM TARTRATE 5 MG TABLET PO PRN
[2025-05-14 02:45] VITALS: BP 118/79; TEMP 97.9; O2SAT 98
[2025-05-14] MEDS: IV D5/ 0.9% NACL 1,000 ML IV PRN (02:54)
[2025-05-14 05:54] LABS: PLATELET COUNT (AUTO) 314 K/uL (150-450); RED BLOOD CELL COUNT(AUTO) 4.04 MIL/uL (4.5-6.0); RED CELL DISTRIBUTION WIDTH 14.6 % (11.5-15.0); WHITE BLOOD COUNT (AUTO) 8.7 K/uL (4.3-11.0)
[2025-05-14 06:16] LABS: CALCIUM, SERUM 8.2 mg/dL (8.5-10.1); CREATININE 0.6 mg/dL (0.6-1.3); PHOSPHORUS 2.1 mg/dL (2.5-4.9); SODIUM SERUM 134.0 mmol/L (136-145); UREA NITROGEN, BLOOD 10.0 mg/dL (7-18)
[2025-05-14 08:00] VITALS: BP 105/68; TEMP 97.7; O2SAT 100
[2025-05-14] MEDS: PANTOPRAZOLE 40 MG TABLET.DR PO SCH (08:32)
[2025-05-14] MEDS ORDERED: AUSTEDO XR PO (09:03)
[2025-05-14] MEDS ORDERED: HYDR-4303 PO (09:03)
[2025-05-14] MEDS: ENSURE ENLIVE 237 ML LIQUID (VANILLA) PO SCH (13:58)
[2025-05-14 16:00] VITALS: BP 104/61; TEMP 98.1; O2SAT 98
[2025-05-14] MEDS: K PHOS NEUTRAL 250 MG TABLET PO ONE (16:55)
[2025-05-14 20:00] VITALS: BP 96/58; TEMP 98.1; O2SAT 96
[2025-05-15 07:00] VITALS: BP 101/63; TEMP 98.1; O2SAT 98
[2025-05-15] MEDS: MEROPENEM 500 MG in IV NS 0.9% 50 ML IV ONE (08:21)
[2025-05-15] MEDS: MEROPENEM 500 MG in IV NS 0.9% 50 ML IV SCH (12:20)
[2025-05-15 16:00] VITALS: BP 105/83; TEMP 97.9; O2SAT 96
[2025-05-15 18:08] LABS: APPEARANCE,URINE CLEAR (CLEAR); BLOOD, URINE NEGATIVE Ery/uL (NEGATIVE); LEUKOCYTE ESTERASE ,URINE NEGATIVE (NEGATIVE); NITRITE, URINE NEGATIVE (NEGATIVE); UGLUCOSE NEGATIVE (NEGATIVE)
[2025-05-15 18:24] LABS: ADD URINE CULTURE YES; SQUAMOUS EPITHELIAL CELL,UR 0-2 /HPF (None Seen); URINE AMORPHOUS URATE Few /HPF (None Seen)
[2025-05-15 23:53] VITALS: BP 137/98; TEMP 98.4; O2SAT 98
[2025-05-16 06:47] LABS: PLATELET COUNT (AUTO) 325 K/uL (150-450); RED BLOOD CELL COUNT(AUTO) 4.02 MIL/uL (4.5-6.0); RED CELL DISTRIBUTION WIDTH 14.9 % (11.5-15.0); WHITE BLOOD COUNT (AUTO) 8.3 K/uL (4.3-11.0)
[2025-05-16 07:04] LABS: ASPARTATE AMINOTRANSFERASE 16 U/L (15-37); CALCIUM, SERUM 8.0 mg/dL (8.5-10.1); CREATININE 0.6 mg/dL (0.6-1.3); PHOSPHORUS 2.8 mg/dL (2.5-4.9); SODIUM SERUM 133 mmol/L (136-145); TOTAL PROTEIN, SERUM 6.2 g/dL (6.4-8.2); UREA NITROGEN, BLOOD 12 mg/dL (7-18)
[2025-05-16 08:00] VITALS: BP 142/128; TEMP 98.1; O2SAT 98
== END 2025-05-16 15:00 | DRG 607 ==
LOC: ER 21:01 → MED 23:39
DX: C44.329 Squamous cell carcinoma of skin of other parts of face (principal); D69.2 Other nonthrombocytopenic purpura; G20.A1 Parkinson's disease without dyskinesia, without mention of fluctuations; Z79.01 Long term (current) use of anticoagulants; F02.83 Dementia in other diseases classified elsewhere, unspecified severity, with mood disturbance; I73.9 Peripheral vascular disease, unspecified; F31.9 Bipolar disorder, unspecified; I48.0 Paroxysmal atrial fibrillation; C44.42 Squamous cell carcinoma of skin of scalp and neck; S80.212A Abrasion, left knee, initial encounter; S80.211A Abrasion, right knee, initial encounter; X58.XXXA Exposure to other specified factors, initial encounter; Y93.9 Activity, unspecified; Y92.129 Unspecified place in nursing home as the place of occurrence of the external cause
CPT/HCPCS: 36415; 70487-TC; 71045-TC; 80048-TC; 80053-TC; 80076-TC; 81001; 83605-TC; 83735-TC; 84100-TC; 85025-TC; 85652-TC; 85730-TC; 86140-TC; 87040-TC; 87081-TC; 87086-TC; A4223; A6253; A6403; G0378; J2185; J7042; Q9967